=== PATIENT | female | born 1985 | race Caucasian/White ===

== ENCOUNTER 2023-05-05 14:21 | Outpatient (CLI) | payer BC | END 2023-05-05 14:22 | disposition home or self-care (01) | LOC: BICMAMMO 14:21 | PROVIDERS: ATTEND Family Medicine | DX: Z12.31 Encounter for screening mammogram for malignant neoplasm of breast (principal); Z80.3 Family history of malignant neoplasm of breast | CPT/HCPCS: 77063; 77067 ==

== ENCOUNTER 2024-11-28 12:08 | Outpatient (CLI) | payer BC | END 2024-11-28 12:09 | disposition home or self-care (01) | LOC: BICMAMMO 12:08 | PROVIDERS: ATTEND Family Medicine | DX: Z12.31 Encounter for screening mammogram for malignant neoplasm of breast (principal); Z80.3 Family history of malignant neoplasm of breast | CPT/HCPCS: 77063; 77067 ==